=== PATIENT | male | born 1940 | race Caucasian/White ===

== ENCOUNTER 2017-11-05 06:42 | Day surgery (SDC) | payer MEDICARE ==
[2017-11-03 11:00] VITALS: BMI 24.1
[~2017-11-05 06:42] MED LIST: LIDOCAINE 1% 20 ML VIAL (10MG/ML) FOR IV START INTRADERMA PRN
[2017-11-05 06:59] VITALS: RESP 18; TEMP 97.5
[2017-11-05] MEDS: LACTATED RINGERS 1,000 ML IV SCH ×2 (07:06→08:03)
[2017-11-05 07:12] LABS: Glucose,Whole Blood 89 mg/dL (75-99)
[2017-11-05] MEDS ORDERED: PROPOFOL 10 MG/ML 20 ML VIAL IV ONE (07:35)
[2017-11-05] MEDS ORDERED: LIDOCAINE 1% INJ 10MG/ML (20 ML MDV) ONE (07:35)
--- NOTE | 2017-11-05 08:04 | P.PCN ---
Date of Procedure: 11/05/17 Procedure(s) Performed: BRIEF HISTORY: Patient is a 76-year-old pleasant male, scheduled for an elective colonoscopy as a part of surveillance of prior history of colon polyps. Last colonoscopy was 3 years ago and according to the patient he was noted to have 3 polyps all of which were tubular adenoma. PROCEDURE PERFORMED: Colonoscopy with snare polypectomy. PREOPERATIVE DIAGNOSIS: History Of colon polyps. IV sedation per Anesthesia. PROCEDURE: After informed consent was obtained, the patient, was brought into the endoscopy unit. IV sedation was administered by Anesthesia under continuous monitoring. Digital rectal examination was normal. Initially the Olympus CF- 160 flexible video colonoscope was then inserted in the rectum, gradually advanced into the cecum without any difficulty. Careful examination was performed as the scope was gradually being withdrawn. Ileocecal valve and the appendiceal orifice were visualized and appeared normal. Prep was excellent. Mucosa of the cecum, appeared normal. In the ascending colon there was a 2.5 and admitted broad-based polyp that was removed by piecemeal snare polypectomy and submitted polypectomy was accomplished. In the transverse colon there was a 5 mm flat polyp status post polypectomy. In the sigmoid colon there was a 1 cm broad-based polyp removed by snare polypectomy. The rest of the ascending colon, transverse colon, descending colon, sigmoid colon, and rectum appeared normal. Retroflexion was performed in the rectum and no lesions were seen. Scattered sigmoid diverticulosis. The patient tolerated the procedure well. IMPRESSION: 2 cm broad-based ascending colon polyp status post piecemeal snare polypectomy 5 mm flat transverse colon polyp status post polypectomy 1 cm broad-based sigmoid colon polyp status post polypectomy. Scattered sigmoid diverticulosis RECOMMENDATIONS: Findings of this examination were discussed with the patient as well as his family. He was advised to follow with the biopsy results. If the biopsy shows a tubular adenoma, he can have a repeat colonoscopy in 3 years.
[2017-11-05 08:10] VITALS: PULSE 53
[2017-11-05 08:16] LABS: Glucose,Whole Blood 100 mg/dL (75-99)
[2017-11-05 08:21] VITALS: BP 131/71
== END 2017-11-05 08:45 | disposition home or self-care (01) ==
LOC: ORWHC2ENDO 06:42
PROVIDERS: ATTEND Internal Medicine Gastroenterology
DX: Z12.11 Encounter for screening for malignant neoplasm of colon (principal); K63.5 Polyp of colon; D12.5 Benign neoplasm of sigmoid colon; K57.30 Diverticulosis of large intestine without perforation or abscess without bleeding; Z86.010 Personal history of colon polyps; I10 Essential (primary) hypertension; I71.4 Abdominal aortic aneurysm, without rupture; E11.9 Type 2 diabetes mellitus without complications; Z79.84 Long term (current) use of oral hypoglycemic drugs; Z79.82 Long term (current) use of aspirin; Z79.899 Other long term (current) drug therapy
CPT/HCPCS: 88305; 45385; J2001; J2704

== ENCOUNTER → 2018-12-23 | Outpatient (CLI) | payer OTHER ==
[2018-12-23 16:07] LABS: African American GFR (CKD) 56.2 (60.0-200.0)
== END | disposition home or self-care (01) ==
LOC: LABWHC1 09:27
PROVIDERS: ATTEND Internal Medicine Interventional Cardiology
DX: Z01.812 Encounter for preprocedural laboratory examination (principal)
CPT/HCPCS: 36415; 82565; 84520

== ENCOUNTER → 2018-12-24 | Outpatient (CLI) | payer MEDICARE, OTHER ==
--- NOTE | 2018-12-24 11:47 | CT ---
CT CHEST FOR PULMONARY EMBOLISM. EXAMINATION TYPE: CT angio chest DATE OF EXAM: 12/24/2018 INDICATION: Follow up known thoracic aortic aneurysm. CT DLP: 237.3 mGycm, Automated exposure control for dose reduction was used. CONTRAST: Patient injected with 80 mL of Isovue 370. COMPARISON: 12/01/2015 TECHNIQUE: CT of the chest is performed on a spiral scan at 2 mm thick sections. Study is performed with intravenous contrast timed for evaluation for the aorta. This will limit additional portions of the evaluation. 3-D MIP images reconstructed by the technologist are reviewed on the computer in th e coronal and sagittal planes. FINDINGS: No suspicious enhancement is evident. No mediastinal or hilar adenopathy enlarged by CT criteria is evident. The ascending aorta diameter at the level of the main pulmonary artery is 3.8 cm. The main pulmonary artery diameter at the bifur cation is 3.3 cm. Aorta: The aorta at the aortic root measures 3.6 cm. The aorta at the pulmonary artery measures 3.8 c m. The aorta at the aortic arch measures 2.7 cm. The aorta at the diaphragm measures 2.5 cm. No disse ction is evident. Lung windows are clear. Limited CT section through the upper abdomen there is a 2.1 cm cyst measuring 4 Hounsfield units post erior lateral left superior pole kidney. IMPRESSIONS: 1. No interval increase of ascending aortic caliber compared to prior exam.
== END ==
LOC: RADCTMAIN 06:54
PROVIDERS: ATTEND Internal Medicine Interventional Cardiology
DX: I71.2 Thoracic aortic aneurysm, without rupture (principal)
CPT/HCPCS: 71275; Q9967

== ENCOUNTER 2020-09-08 06:52 | Day surgery (SDC) | payer OTHER ==
[2020-09-06 11:39] VITALS: BMI 24.0
[2020-09-08] MEDS ORDERED: LACTATED RINGERS 1,000 ML IV SCH (06:57)
[2020-09-08] MEDS ORDERED: PROPOFOL 10 MG/ML 20 ML VIAL IV ONE (07:41)
[2020-09-08 07:42] LABS: Glucose,Whole Blood 82 mg/dL (75-99)
[2020-09-08 07:44] VITALS: RESP 16; TEMP 97
--- NOTE | 2020-09-08 08:01 | P.PCN ---
Date of Procedure: 09/08/20 Procedure(s) Performed: BRIEF HISTORY: Patient is a 79-year-old pleasant white male scheduled for an elective colonoscopy as a part of evaluation of prior history of colon polyps and mild anemia. PROCEDURE PERFORMED: Colonoscopy. PREOPERATIVE DIAGNOSIS: History of colon polyps and anemia. IV sedation per Anesthesia. PROCEDURE: After informed consent was obtained, the patient, was brought into the endoscopy unit. IV sedation was administered by Anesthesia under continuous monitoring. Digital rectal examination was normal. Initially the Olympus CF-160 flexible video colonoscope was then inserted in the rectum, gradually advanced into the cecum without any difficulty. Careful examination was performed as the scope was gradually being withdrawn. Ileocecal valve and the appendiceal orifice were visualized and appeared normal. Prep was excellent. Mucosa of the cecum, ascending colon, transverse colon, descending colon, sigmoid colon, and rectum appeared normal. Scattered sigmoid diverticulosis seen. Retroflexion was performed in the rectum and no lesions were seen. The patient tolerated the procedure well. IMPRESSION: Normal-appearing colon from rectum to cecum with no evidence of colorectal neoplasia . Scattered sigmoid diverticulosis Small internal hemorrhoids RECOMMENDATIONS: Findings of this examination were discussed with the patient as well as his family. He was advised to have a repeat screening colonoscopy in 5 years now because of the prior history of colon polyps.
[2020-09-08 08:20] VITALS: BP 145/65; PULSE 63
== END 2020-09-08 08:42 | disposition home or self-care (01) ==
LOC: ORWHC2ENDO 06:52
PROVIDERS: ATTEND Internal Medicine Gastroenterology
DX: Z12.11 Encounter for screening for malignant neoplasm of colon (principal); D64.9 Anemia, unspecified; K57.90 Diverticulosis of intestine, part unspecified, without perforation or abscess without bleeding; K64.8 Other hemorrhoids; Z86.010 Personal history of colon polyps; Z79.899 Other long term (current) drug therapy; I10 Essential (primary) hypertension; E11.9 Type 2 diabetes mellitus without complications; K21.9 Gastro-esophageal reflux disease without esophagitis; Z79.84 Long term (current) use of oral hypoglycemic drugs
CPT/HCPCS: J2704; G0105; 45378

== ENCOUNTER 2021-08-05 11:40 | Emergency (ER) | payer OTHER, MEDICARE ==
--- NOTE | 2021-08-05 12:44 | ED ---
General Adult HPI - General Chief complaint: Headache Stated complaint: covid+, wants infusion Time Seen by Provider: 08/05/21 12:32 Source: patient Mode of arrival: ambulatory Limitations: no limitations - History of Present Illness Initial comments: Dictation was produced using [employer] dictation software. please excuse any grammatical, word or spelling errors. Chief Complaint: 76-year-old male sent in by primary care physician's office for monoclonal antibodies. History of Present Illness: Is a 76-year-old male presents to the emergency department for monoclonal antibodies. Patient tested positive for COVID-19 today. He's been symptomatic since yesterday. His symptoms include headache, fever and body aches. Patient is vaccinated for COVID-19. This is his first time ilsa a virus. Is unclear of how he contracted the virus. Patient denies any shortness of breath. Denies any cough. The ROS documented in this emergency department record has been reviewed and confirmed by me. Those systems with pertinent positive or negative responses have been documented in the HPI. All other systems are other negative and/or noncontributory. PHYSICAL EXAM: General Impression: Alert and oriented x3, not in acute distress HEENT: Normocephalic atraumatic, extra-ocular movements intact, pupils equal and reactive to light bilaterally, mucous membranes moist. Cardiovascular: Heart regular rate and rhythm Chest: Able to complete full sentences, no retractions, no tachypnea Abdomen: abdomen soft, non-tender, non-distended, no organomegaly Musculoskeletal: Pulses present and equal in all extremities, no peripheral edema Motor: no focal deficits noted Neurological: CN II-XII grossly intact, no focal motor or sensory deficits noted Skin: Intact with no visualized rashes Psych: Normal affect and mood ED course: 80-year-old well-appearing male presents to the emergency department. He is directed from the care physician's office to come to the ER to get monoclonal antibodies. Patient meets criteria due to age and comorbidities. Vital signs upon arrival are within acceptable limits. Patient not hypoxic. P atient given monoclonal antibody infusion. Observe in emergency department. Patient reevaluated bedside at 2:10 PM and will be discharged home. Precautions discussed. Patient advised follow-up with primary care doctor. - Related Data Home Medications Medication Instructions Recorded Confirmed Aspirin 81 mg PO DAILY 12/29/15 09/08/20 Gabapentin [Neurontin] 300 mg PO HS 12/29/15 09/08/20 glipiZIDE [Glucotrol] 5 mg PO AC-BID 12/29/15 09/08/20 Ferrous Sulfate [Feosol] 325 mg PO DAILY 11/03/17 09/08/20 Multivitamins, Thera [Multivitamin 1 tab PO DAILY 11/03/17 09/08/20 (formulary)] metFORMIN HCL [Glucophage] 1,000 mg PO BID 11/03/17 09/08/20 Dulaglutide [Trulicity] 0.75 mg SQ WE 09/06/20 09/08/20 Losartan Potassium 50 mg PO DAILY 09/06/20 09/08/20 Allergies Allergy/AdvReac Type Severity Reaction Status Date / Time No Known Allergies Allergy Verified 08/05/21 12:27 Review of Systems ROS Statement: Those systems with pertinent positive or pertinent negative responses have been documented in the HPI. ROS Other: All systems not noted in ROS Statement are negative. Past Medical History Past Medical History: Diabetes Mellitus, GERD/Reflux, Osteoarthritis (OA) Additional Past Medical History / Comment(s): Hx of colon polyps, takes losartan for kidneys not HTN. Hx. of Pericarditis 10 yrs. ago. aortic aneurysm, being followed by DR Major. neuropathy raoul legs, WATCHING "[employer]" History of Any Multi-Drug Resistant Organisms: None Reported Past Surgical History: Back Surgery, Joint Replacement, Orthopedic Surgery Additional Past Surgical History / Comment(s): Bilat. knee replacements, raoul cataracts, COLONOSCOPY Additional Past Anesthesia/Blood Transfusion Reaction / Comment(s): Had difficulty urinating after surgery. Past Psychological History: No Psychological Hx Reported Smoking Status: Former smoker - Past Family History Mother Family Medical History: No Reported History Father Family Medical History: Cancer Additional Family Medical History / Comment(s): Prostate General Exam Limitations: no limitations Course Vital Signs 08/05/21 12:22 Temperature 100.1 F H Pulse Rate 90 Respiratory 20 Rate Blood Pressure 161/82 O2 Sat by Pulse 96 Oximetry Medical Decision Making - Lab Data Lab Results 08/05/21 Range/Units 12:20 Coronavirus (PCR) Detected A (Not Detectd) Disposition Clinical Impression: Coronavirus infection Disposition: HOME SELF-CARE Condition: Fair Instructions (If sedation given, give patient instructions): Coronavirus Disease 2019 (COVID-19) Is patient prescribed a controlled substance at d/c from ED?: No Referrals: Jimi Fulton MD [Primary Care Provider] - 1-2 days
[2021-08-05] MEDS ORDERED: BEBTELOVIMAB (EUA) 175 MG/2 ML VIAL IV ONE (13:30)
[2021-08-05 14:18] VITALS: BP 163/75; PULSE 71; RESP 18; TEMP 99.9
== END 2021-08-05 14:25 | disposition home or self-care (01) ==
LOC: EC 11:40
DX: U07.1 COVID-19 (principal); R51.9 Headache, unspecified; E11.9 Type 2 diabetes mellitus without complications; Z87.891 Personal history of nicotine dependence
CPT/HCPCS: 87635; 99284; Q0222

== ENCOUNTER → 2021-10-16 | Outpatient (CLI) | payer OTHER ==
--- NOTE | 2021-10-16 11:31 | US ---
EXAMINATION TYPE: US carotid duplex BILAT DATE OF EXAM: 10/16/2021 COMPARISON: NONE CLINICAL HISTORY: H54.62 vision loss. TECHNIQUE: Carotid duplex ultrasound examination. Indirect Doppler criteria was utilized. FINDINGS: EXAM MEASUREMENTS: RIGHT: Peak Systolic Velocity (PSV) cm/sec ----- Right CCA: 85.2 ----- Right ICA: 65.5 ----- Right ECA: 86.4 ICA/CCA ratio: 0.8 RIGHT: End Diastole cm/sec ----- Right CCA: 9.6 ----- Right ICA: 14.9 ----- Right ECA: 0.0 LEFT: Peak Systolic Velocity (PSV) cm/sec ----- Left CCA: 72.1 ----- Left ICA: 84.2 ----- Left ECA: 83.1 ICA/CCA ratio: 1.2 LEFT: End Diastole cm/sec ----- Left CCA: 10.6 ----- Left ICA: 20.4 ----- Left ECA: 0.0 VERTEBRALS (direction of flow): Right Vertebral: antegrade Left Vertebral: antegrade Rhythm: Normal [employer]IP[employer] NOTES: mild to moderate bilateral plaque within bilateral bulbs and extending into the IC As; bilateral intimal thickening, no significant stenosis seen IMPRESSION: No evidence for hemodynamically significant stenosis. Criteria for Assigning % of Stenosis / Diameter reduction (Estimation based on the indirect measurements of the internal carotid artery velocities (ICA PSV). 1. Normal (no stenosis)=ICA PSV < 125 cm/s: ratio < 2.0: ICA EDV<40 cm/s. 2. Less than 50% stenosis=ICA PSV < 125 cm/s: ratio < 2.0: ICA EDV<40 cm/s. 3. 50 to 69% stenosis=ICA PSV of 125 to 230 cm/s: ration 2.0 ? 4.0: ICA EDV 40-100 cm/s. 4. Greater than 70% stenosis to near occlusion= ICA PSV > 230 cm/s: ratio > 4.0: ICA EDV > 100 cm/s. 5. Near occlusion= ICA PSV velocities may be low or undetectable: variable ratio and ICA EDV. 6. Total occlusion=unable to detect flow.
== END | disposition home or self-care (01) ==
LOC: RADUSWWP 10:44
DX: I65.23 Occlusion and stenosis of bilateral carotid arteries (principal); H54.62 Unqualified visual loss, left eye, normal vision right eye
CPT/HCPCS: 93880

== ENCOUNTER → 2021-11-07 | Day surgery (SDC) | payer MEDICARE, OTHER ==
[2021-11-02 16:19] VITALS: BMI 24.3
[~2021-11-07] MED LIST changes: +LACTATED RINGERS 1,000 ML IV SCH; +LIDOCAINE 1% (10MG/ML) FOR IV START INTRADERMA PRN; -LIDOCAINE 1% 20 ML VIAL (10MG/ML) FOR IV START INTRADERMA PRN; +LIDOCAINE 2% INJ 20 MG/ML (2 ML VIAL) ONE; +PROPOFOL 10 MG/ML 20 ML VIAL IV ONE
[2021-11-07 08:07] VITALS: RESP 16; TEMP 97.3
[2021-11-07 08:12] LABS: Glucose,Whole Blood 117 mg/dL (70-110)
--- NOTE | 2021-11-07 09:12 | P.PCN ---
Date of Procedure: 11/07/21 Procedure(s) Performed: BRIEF HISTORY: Patient is a 80-year-old, pleasant, white male scheduled for an upper endoscopy with a possible dilation as part of evaluation of intermittent dysphagia to solids for the last 6 months duration.. He has history of reflux symptoms and has been on omeprazole 20 mg daily for the last 6 months. PROCEDURE PERFORMED: Esophagogastroduodenoscopy. PREOPERATIVE DIAGNOSIS: History of GERD and intermittent dysphagia to solids. IV sedation per anesthesia. PROCEDURE: After informed consent was obtained, the patient was brought into the endoscopy unit. IV sedation was administered by Anesthesia under continuous monitoring. Initially the Olympus GIF-140 video endoscope was inserted into the mouth. Esophagus intubated without any difficulty. It was gradually advanced into the stomach and duodenum and carefully examined. The bulb and the second part of the duodenum appeared normal. The scope at this time was withdrawn to the stomach, adequately insufflated with air, and upon careful examination, mucosa of the antrum, had mild gastritis and biopsies were done from this area. The body, cardia and the fundus appeared normal. The scope was then withdrawn into the esophagus. The GE junction was located at 39 cm from the incisors. Small sliding type hiatal hernia noted. The esophagus appeared normal. There were no erosions or ulcerations seen , no evidence of esophageal stricture. Biopsies were done from the mid and distal esophagus and the patient tolerated the procedure well. IMPRESSION: 1. Small hiatal hernia but no evidence of esophagitis or esophageal stricture. 2. Mild antral gastritis. RECOMMENDATIONS: The findings of this examination were discussed with the patient as well as his family. He was advised to follow with the biopsy results.. Continue with omeprazole 20 mg daily and follow antireflux measures.
[2021-11-07 09:30] VITALS: BP 127/68; PULSE 63
== END ==
LOC: ORWHC2ENDO 07:24
PROVIDERS: ATTEND Internal Medicine Gastroenterology
DX: K29.50 Unspecified chronic gastritis without bleeding (principal); K21.00 Gastro-esophageal reflux disease with esophagitis, without bleeding; K44.9 Diaphragmatic hernia without obstruction or gangrene; I10 Essential (primary) hypertension; I71.9 Aortic aneurysm of unspecified site, without rupture; I35.1 Nonrheumatic aortic (valve) insufficiency; M19.90 Unspecified osteoarthritis, unspecified site; E11.9 Type 2 diabetes mellitus without complications; Z79.82 Long term (current) use of aspirin; Z79.899 Other long term (current) drug therapy; Z86.010 Personal history of colon polyps
CPT/HCPCS: 88305; 43239; J2704; J2001

== ENCOUNTER → 2021-11-29 | Outpatient (CLI) | payer OTHER, MEDICARE ==
--- NOTE | 2021-11-29 13:15 | US ---
EXAMINATION TYPE: US kidneys/renal and bladder DATE OF EXAM: 11/29/2021 COMPARISON: NONE CLINICAL HISTORY: 81-year-old male N20.0 KIDNEY STONE. Right back pain and that radiates to groin, no h/o stones, no hematuria TECHNIQUE: Multiple sonographic images of the kidneys and bladder are obtained. FINDINGS: EXAM MEASUREMENTS: Right Kidney: 9.5 x 4.4 x 5.1 cm Left Kidney: 9.3 x 4.2 x 5.6 cm Right Kidney: No hydronephrosis or masses seen Left Kidney: superior pole cyst seen 2.1 x 2.4 x 1.8cm . No hydronephrosis. Bladder: Outpouching from the fundus of the gallbladder measuring 4.4 cm suggestive of a bladder wall diverticulum. Given the irregularity seen along the posterior dome of the bladder, page 20 of 40, re commend correlation with urinalysis and urine cytology. Bilateral Jets seen: Yes IMPRESSION: 1. No hydronephrosis. 2. A benign 2.4 cm upper pole cyst left kidney. 3. Irregularity of the posterior bladder wall (page 20 of 40) likely reflects the neck of a bladder w all diverticulum along the fundus measuring up to 4.4 cm wide. Correlate with urinalysis and urine cy tology to exclude a urothelial lesion.
== END | disposition home or self-care (01) ==
LOC: RADUSWWP 10:13
PROVIDERS: ATTEND Internal Medicine Geriatric Medicine
DX: N20.0 Calculus of kidney (principal); N28.1 Cyst of kidney, acquired
CPT/HCPCS: 76770

== ENCOUNTER → 2022-08-22 | Outpatient (CLI) | payer MEDICARE, OTHER ==
--- NOTE | 2022-08-22 09:29 | US ---
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 No nephrolithiasis is seen. No solid masses are identified. The urinary bladder is anechoic. Bilateral ureteral jets are seen. IMPRESSION: Simple cyst upper pole left kidney.
== END | disposition home or self-care (01) ==
LOC: RADUSWWP 08:58
PROVIDERS: ATTEND Urology
DX: C67.2 Malignant neoplasm of lateral wall of bladder (principal); N28.1 Cyst of kidney, acquired
CPT/HCPCS: 76770

== ENCOUNTER → 2022-10-08 | Outpatient (CLI) | payer OTHER ==
--- NOTE | 2022-10-08 19:44 | XR ---
EXAMINATION TYPE: XR cervical spine comp DATE OF EXAM: 10/08/2022 COMPARISON: None HISTORY: 81-year-old male M5 4.2 TECHNIQUE: 6 views FINDINGS: Hypertrophic facet and uncovertebral joint arthropathy is present throughout. On the right, this results in moderate bony neuroforaminal narrowing at C4-C5, C5-C6, and C6-C7. On the left, this results in mild to moderate bony neuroforaminal narrowing C3-C4 and mild at C6/C7. Mild to moderate disc/endplate degenerative changes present throughout. No predental space widening o r prevertebral soft tissue swelling. Trace grade 1 anterolisthesis at C7-T1 on the swimmer's view. Re maining alignment is maintained. Normal odontoid view. IMPRESSION: 1. Moderate multilevel spondylotic change. Degenerative grade 1 anterolisthesis C7-T1. 2. Variable mild to moderate neuroforaminal stenoses as outlined above, present to a greater degree o n the right.
== END | disposition home or self-care (01) ==
LOC: RADXRMAIN 11:19
PROVIDERS: ATTEND Nurse Practitioner Family
DX: M47.812 Spondylosis without myelopathy or radiculopathy, cervical region (principal); M48.02 Spinal stenosis, cervical region; M99.71 Connective tissue and disc stenosis of intervertebral foramina of cervical region; M43.13 Spondylolisthesis, cervicothoracic region
CPT/HCPCS: 72050

== ENCOUNTER → 2023-05-05 | Outpatient (CLI) | payer OTHER ==
--- NOTE | 2023-05-05 22:02 | US ---
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 Bladder: anechoic. No discrete masses identified Bilateral Jets seen: yes. No hydroureter evident IMPRESSION: No suspicious abnormality within the urinary bladder.
== END | disposition home or self-care (01) ==
LOC: RADUSWWP 09:31
PROVIDERS: ATTEND Urology
DX: C67.2 Malignant neoplasm of lateral wall of bladder (principal)
CPT/HCPCS: 76770

== ENCOUNTER → 2024-07-29 | Outpatient (CLI) | payer OTHER ==
--- NOTE | 2024-07-29 13:52 | US ---
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 No significant ch sara from most recent prior ultrasound. [facility], , 07/29/2024 1:50 PM
== END | disposition home or self-care (01) ==
LOC: RADUSWWP 12:59
PROVIDERS: ATTEND Urology
DX: C67.2 Malignant neoplasm of lateral wall of bladder (principal)
CPT/HCPCS: 76770